=== PATIENT | female | born 1960 | race Caucasian/White ===

== ENCOUNTER → 2019-03-05 10:45 | Outpatient (CLI) | payer OTHER, SELFPAY ==
--- NOTE | 2019-03-05 10:45 | EMB_PTH ---
PATIENT: DAJUAN HICKMAN LOC: [facility] U#:[id number] AGE/SX: 64/F ROOM: RE03/05/[address]: Dr. Velasquez Justin MD : 1960 BED: DIS: SPEC #: [id number] RECD: 03/06/19 10:45 STATUS: JAMAAL DELIA #: [id number] JIM: 03/05/19 10:[address]: Velasquez Justin DEPT: SURGICAL PATHOLOGY RECD BY: Bhargav Dugan Tissues: Endometrium, NOS Procedures: Surgery Specimen Level IV HEADER OPERATION: Endometrial biopsy PRE-OP DIAGNOSIS: N85.8 TISSUE SUBMITTED: Endometrial biopsy MICROSCOPIC DIAGNOSIS Endometrium, biopsy: Scant strips of benign superficial endometrium and endocervix. See comment. AM:esperanza 03/07/19 COMMENT The specimen primarily contains blood clot. Clinical correlation is suggested. MICROSCOPIC DESCRIPTION Slides are reviewed. GROSS DESCRIPTION Received in fixative is one container labeled with the patient's name and designated endometrial biopsy. The specimen consists of multiple irregular and elongated fragments of reddish-dumont soft tissue that in aggregate measure 3 x 1.5 x 0.2 cm. The specimen is totally submitted in one cassette. / AM:esperanza 03/06/19 TC:5 CPT: 05126
== END ==
PROVIDERS: Referring Provider Obstetrics & Gynecology; Visit Provider Obstetrics & Gynecology
DX: N85.8 Other specified noninflammatory disorders of uterus (principal)
CPT/HCPCS: 88305

== ENCOUNTER 2019-04-01 12:19 | Inpatient (IN) | payer OTHER, SELFPAY ==
--- NOTE | 2019-03-25 16:06 | EKG12_ITS ---
Test Reason : PRE OP Blood Pressure : / mmHG Vent. Rate : 050 BPM Atrial Rate : 050 BPM P-R Int : 144 ms QRS Dur : 076 ms QT Int : 426 ms P-R-T Axes : 060 019 021 degrees QTc Int : 388 ms Sinus bradycardia with sinus arrhythmia Otherwise normal ECG Confirmed by JEAN PIERRE NAJERA, ERICA ([id number]), electronic news gathering editor MATEO SUTHERLAND ([id number]) on 03/26/2019 9:44:27 AM Referred By: Velasquez Justin Confirmed By:ERICA GREENFIELD MD
[2019-03-25 16:44] LABS: Hematocrit 44.9 % (37-47); Hemoglobin 14.2 g/dL (12.0-15.0); Mean Corp Hgb Conc 31.6 g/dL (32-36); Mean Corpuscular Hgb 29.8 pg (27.0-32.0); Mean Corpuscular Volume 94.1 fL (81-99); Mean Platelet Vol. 9.5 fl (6.2-12.0); Platelet Count 275 K/mm3 (150-450); RBC Distribution Width CV 13.2 % (11.6-14.6); RBC Distribution Width SD 45.8 fl (35.1-43.9); Red Blood Count 4.77 M/mm3 (4.2-5.4); White Blood Count 6.5 K/mm3 (4.4-11.0)
[2019-03-25 17:01] LABS: Prothrombin Time (Protime)PT. 12.5 SECONDS (11.7-14.9)
[2019-03-25 17:02] LABS: Partial Thromboplast Time 31.4 Seconds (24.1-36.2)
[2019-03-25 17:03] LABS: Creatinine, Serum 0.74 mg/dL (0.55-1.02); EST Glomerular Filtration Rate 85 mL/min (>60); Est Glom Filt Rate - Afr Amer 103 mL/min (>60)
--- NOTE | 2019-03-30 10:23 | PCM.HP.BLA ---
History and Physical Date of Admission: 04/01/19 Surgical History and Physical Vania Mederos, a 58 year old female 4 0 2 0 4, presents for USMAN/BSO and remove labial skin tag on April 01, 2019 at 04/01/19. -- Large Pelvic Mass -- Ada presents here today as referral from Susy BURNS for Enlarged Uterus found on recent CT Scan. She has noticed a low pressure periodically and a difference in her bowels. Denies bleeding or other concerns at this time. Enlarged Uterus which began Found on CT Scan. Ada claims it started suddenly. It occurs all the time. Characterizes the quality pressure. Severity is moderate and very concerned; Associated signs and symptoms are denies bleeding; some fullness in pelvis and constipation symptoms; also has vaginal polyp. CT scan shows 15-16 cm uterus with mass present. MEDICATIONS HISTORY: ALLERGIES: Peanut, Hives and/or rash, lettuce, Intolerance-diarrhea, Pineapple, Hives and/or rash, Bactrim and Lethargy Infections - Chicken pox Illnesses - no serious past illnesses Accidents - None Hospitalizations - Childbirth Review of Systems: GENERAL - Denies fever, or chills SKIN - Denies skin changes EYES - wears glasses EARS - Denies difficulty hearing NOSE - Denies nasal congestion or bleeding MOUTH - Denies sore throat or difficulty swallowing NECK - Denies pain or swelling RESPIRATORY - Denies shortness of breath or wheezing CARDIOVASCULAR - Denies palpitations or chest pain GASTROINTESTINAL - Denies nausea, vomiting, diarrhea, constipation GENITOURINARY - Denies dysuria, frequency of urination, incontinence of urine MUSCULOSKELETAL - Denies joint or muscle pain NEUROLOGICAL - Denies localized numbness or weakness PSYCHIATRIC - Denies depression or anxiety ENDOCRINE - Denies heat or cold intolerance, weight loss or gain HEMATO-IMMUNOLOGIC - Denies excessive bleeding with cuts SOCIAL HISTORY: Alcohol Use - None Smoking - Never Diet - No Peanuts/Peanut butter Lifestyle - moderate stress lifestyle and Exercise - active work Seat Belt Use - always Employer - [employer] Job Description - Dramatic Art Teacher Illicit Drug Use - None Sexual Activity - Spouse-Sig Other Name - Valerio Spouse-Sig Other Occupation - Self Employed Children Name(s) - 4 children Control - postmenopausal FAMILY HISTORY: MENSTRUAL HISTORY: LMP Known?- Postmenopausal PAST PREGNANCIES: Total Pregnancies - 6; Full Term Pregnancies - 4; Premature - 0; Abortions, Induced - 0; Abortions, Spontaneous - 2; Ectopics - 0; Multiple Births - 0; Living Children - 4 PHYSICAL EXAM BP- 118/68 Sitting, Right arm, regular cuff Temp- 98.5 Taken Orally Weight- 147.64115 lbs Height- 63 inch BMI:26.24 CONSTITUTIONAL - NAD, well nourished, and well developed SKIN - No rash, lesions, or ulcers HEENT - Normocephalic, PERRLA, EOMI NECK - No nodes, no nuchal rigidity and thyroid normal size and texture LYMPH NODES - Palpation of lymph nodes in neck and groins within normal limits LUNGS - CTA x2 without wheezes, crackles or rales CARDIAC - Regular rate and rhythm without rubs, murmurs, or gallops ABDOMEN - Without hepatosplenomegaly, distention, masses, rebound, or guarding; normal bowel sounds; no hernias EXTREMITIES - No edema or calf tenderness NEUROLOGICAL - Cranial nerves II-XII grossly intact PSYCHIATRIC - A and O to time, place, person, mood and affect External Genital Vagina - non-tender without lesions and 1 cm right labial cyst vs skin tag Urethra/Urethral Meatus - non-tender Bladder - non-tender Vagina - vaginal watts are pink and moist without loss of rugae and no evidence of atropy Cervix - without cervical motion tenderness and has normal size and features without evident lesions Uterus - 21-22 cm sized pelvic mass likely uterus; small ventral hernia (1 cm) Adnexa - non-diagnostic, compromised by pelvic mass ASSESSMENT/PLAN: 1. Intra-abdominal And Pelvic Swelling, Mass And Lump Likely large fibroid uterus causing bowel and bladder symptoms but no bleeding. EMBx and CA-125 results benign. U/S very suggestive of large fibroid uterus. Plan USMAN/BSO. Discussed RBAs including need for vertical skin incision and all questions answered. 2. Vulvar Cyst Plan removal at time of USMAN/BSO.
[2019-04-01] VITALS (12 sets, daily range): BP systolic 91–128; BP diastolic 56–68; PULSE 37–89; RESP 12–18; TEMP 36.2–36.9; O2SAT 94–98; BMI 26.2
[2019-04-01] MEDS: Lactated Ringers 1,000 ML 100 ML IV ×2 (12:49→14:45)
--- NOTE | 2019-04-01 13:50 | HYST_PTH ---
PATIENT: DAJUAN HICKMAN LOC: [facility] U#:[id number] AGE/SX: 58/F ROOM: SD322 RE04/01/[address]: Dr. Velasquez Justin MD : 1960 BED: 1 DIS: 04/02/2019 SPEC #: [id number] RECD: 04/01/19 15:54 STATUS: JAMAAL REAlan #: [id number] JIM: 04/01/19 13:[address]: Velasquez Justin DEPT: SURGICAL PATHOLOGY RECD BY: Bhargav Dugan ENTERED: 04/02/19 10:46 SP TYPE: HYSTERECT OTHR DR: GRANT Morgan Tissues: A - Uterus, NOS B - Labium, NOS Procedures: Special Stain Group II PAS Stain (control) Mucicarmine Stain (control) Surgery Specimen Level IV Surgery Specimen Level V HEADER OPERATION: Total abdominal hysterectomy, bilateral salpingo-oophorectomy PRE-OP DIAGNOSIS: Intra-abdominal and pelvic swelling, mass; vulvar cyst TISSUE SUBMITTED: A - Uterus, cervix, bilateral fallopian tubes and ovaries, B - Labial skin tag MICROSCOPIC DIAGNOSIS A. Uterus, hysterectomy: Cervix - nabothian cysts and minimal chronic inflammation. Endometrium - weakly proliferative to inactive endometrium. Myometrium - leiomyoma and focal adenomyosis. Right and left ovary - corpora albicantia and occasional benign inclusion cyst. Right and left fallopian tubes - no pathologic change. B. Labial skin tag, excision: Benign epithelial cyst. See comment. AM:esperanza 04/04/19 COMMENT Special stains (PAS and mucin) with matched controls support the above diagnosis and endocervical in origin. Clinical correlation is suggested. Case has been reviewed in consultation with Dr. Christianson who concurs with the above diagnosis. IDC:SJ MICROSCOPIC DESCRIPTION Slides are reviewed. GROSS DESCRIPTION A - Received in fixative is one container labeled with the patient's name and designated uterus. The specimen consists of a ball-shaped uterus with attached one fallopian tube and ovary, detached the other fallopian tube and ovary and detached cervical segment. The uterus with cervix weighs 1298 gm. The external surface of the uterus is inked. The endocervical canal measures 6.5 cm in length and is grossly unremarkable. The elongated endometrial cavity measures 6 x 2.5 cm. The endometrium is light dumont, velvety and glistening. The myometrium is distorted by a fleshy, rubbery, pink-dumont nodule measuring 14 cm in diameter. The cut surfaces of the mass are homogenous without areas of cyst formation, necrosis or hemorrhage. The myometrium without the mass measures 1.2 cm in greatest thickness. The right and left ovaries are similar in appearance having crinkled external surface and light dumont in color. The right ovary measures 3 x 2 x 1.5 cm. Serial sections do not reveal mass lesion. The right fallopian tube measures 5.5 cm in length and 0.6 cm in average diameter. No tubo-ovarian adhesions are identified. Serial sections of the left ovary likewise do not reveal mass lesions. The left fallopian tube measures 5?cm in length and 0.6 cm in average diameter. No tubo-ovarian adhesions are seen. Both fallopian tubes have normal fimbriated ends. Digital Proofing And Platemaker sections are submitted in 12 cassettes as follows: 1?- anterior cervix, 2 - posterior cervix, 3 & 4 - anterior uterine wall, 5 & 6 - posterior uterine wall, 7-10 - myometrial mass, 11 - right fallopian tube and ovary, 12 - left fallopian tube and ovary. B - Received is one container labeled with the patient's name and not further designated. The specimen consists of one irregular fragment of light dumont soft tissue that measures 1.5 x 1 x 0.4 cm. The specimen is bisected to reveal a cystic space containing light dumont fluid. The specimen is totally submitted in one cassette. / AM:esperanza 04/02/19 TC:1 CPT: 34996, 35662, 84818 x2
--- NOTE | 2019-04-01 15:12 | PCM.OPRPT ---
Report of Operation Date of Procedure: 04/01/19 Pre-Operative Diagnosis: Large Pelvic Mass and Fibroids, Right Vulvar Cyst Post-Operative Diagnosis: Large Pelvic Mass and Fibroids, Right Vulvar Cyst Surgery/Procedure Performed:: Total Abdominal Hysterectomy and Bilateral Salpingo-Oophorectomy, Excision of Right Vulvar Cyst Description of Surgical Findings:: 18 cm fibroid uterus with normal-appearing fallopian tubes and ovaries. 1.5 cm right vulvar cyst. medical imaging technician: Thu Briceño Type of Anesthesia:: General - Endotracheal Anesthesiologist: Valerio Ralph Specimen's removed: Uterus and bilateral fallopian tubes and ovaries, right vulvar cyst. Drains: Jimenez to straight drain Estimated Blood Loss (mL): 200 cc Fluids Replaced: Crystalloid Description of Procedure: Surgeon: Velasquez Justin MD, FACOG Indications: This is a 58-year-old patient who his been having problems with pelvic pressure and a recent CT scan and ultrasound showed a large pelvic mass which was probably a fibroid. She also has about a 1.5 to 2 cm right vulvar cyst which she would like removed. Given this the patient desires that we proceed with the above procedure. She has been counseled regarding the risk and indications of this procedure including the possibility of bleeding, infection, and injury to surrounding structures such as bowel bladder. All questions were answered. Procedure: Patient was taken to the operating room where after induction of general anesthesia she was prepped and draped in the usual sterile fashion. A Jimenez catheter was placed. The vulvar cyst was grasped with a pickup after Betadine sterilizing solution was applied and approximately 5 cc of half percent ropivacaine was injected in the right vulvar cyst base. Metzenbaum scissors was used to excise the cyst and it was sent in its entirety to pathology. 2 [id number] 2-0 chromic sutures were used to affect hemostasis and attention was turned toward the abdominal portion of the procedure. After being prepped and draped, the abdomen was entered through a Pfannenstiel incision and peritoneal cavity was entered bluntly. It was not possible to immediately place the Alysa retractor due to the large size of the uterus. Round ligaments were identified and ligated with 0 Vicryl suture. Progressive bites were taken on either side of the uterus and after approximately 2 bites we were able to develop a bladder flap. Before reaching the uterine arteries, the body of the uterus detached leaving the cervix in place. Progressive bites were then taken down on either side of the uterine cervix ligating each pedicle with 0 Vicryl suture. Final bites across the vaginal cuff incorporated the uterosacral ligaments into the vaginal cuff using 0 Vicryl suture and 2 [id number] sutures were placed across the vaginal cuff. Vaginal cuff and pelvic sidewall pedicles were oversewn where necessary to achieve hemostasis. The left ovary was then removed with infundibulopelvic ligament ligated x2. The right ovary had been removed with the uterine specimen but the pedicle was ligated x2 after removal of the uterus. Pelvis was copiously irrigated removing all clot and Erika was placed across the vaginal cuff to help with postoperative hemostasis. Bergheim retractor was removed and rectus abdominis muscles were reapproximated in the midline with interrupted 0 Vicryl suture. 0 PDS strata fix was used to close the fascia in a running fashion and subcutaneous tissue was copiously irrigated with saline solution before closing with 3-0 Vicryl suture. 3-0 Monocryl suture was then used in running fashion to reapproximate skin edges area and Steri-Strips, Telfa, and Mepilex were placed across the incision. Patient tolerated the procedure well was taken to recovery room in satisfactory condition; sponge instrument and needle counts were all reportedly correct. Estimated blood loss for the case was 200 cc. Cefotan g IV was given prior to beginning the operative procedure. There were no apparent complications of the surgery. Specimen to pathology was uterus and bilateral fallopian tubes and ovaries. Grafts/Implants Used: None - Complications None - Admit VTE Documentation VTE Present on Admission: Yes VTE Mechan Device Prophylaxis: SCD's VTE Pharm Prophylaxis ordered?: Yes
[2019-04-01] MEDS: Ropivacaine 0.5% 30 ML Vial (15:15)
--- NOTE | 2019-04-01 15:29 | DCINST_ITS ---
Discharge Diet: No Restrictions Discharge Activity: Return to Normal Activity - do what you feel comfortable, but do not over do it. You may climb stairs, just use caution and hold the railing., May not drive while taking narcotic pain medications., May Shower, May Take a Tub Bath May resume sexual activity in: 6 weeks - nothing in the vagina. Lifting Restrictions: 25 pounds for 6 weeks. Call your doctor if your incision/area has: Continuous Slow Oozing, Sudden Increased Bleeding, Increased Pain/ Swelling, Increased Redness, Foul Smelling Discharge Call your doctor if you observe: Fever of 101 or Higher, Inability to urinate, Inability to have a bowel movement, Using more than one pad per hour, - - Some vaginal bleeding may be noted for up to 4-8 weeks. Cleanse incision/area with: - - Let the soapy water run over your incision, rinse and pat dry. Additional Dressing/Incision Instructions:: The white strips (Steri Strips) on your incision will fall off on their own. Allergies/Adverse Reactions: Allergies sulfamethoxazole [From Bactrim] Adverse Reaction (Verified 04/01/19 12:36) exhaustion trimethoprim [From Bactrim] Adverse Reaction (Verified 04/01/19 12:36) exhaustion peanuts Allergy (Uncoded 04/01/19 12:36) Rash Medications to take at Discharge Antiarthritic Combination No.2 [Glucosamine-Chondroitin] 1,800 mg PO DAILY 03/22/19 Cholecalciferol (VIT D3) [Vitamin D] 2,000 unit PO DAILY 03/22/19 Turmeric Root Extract [Turmeric] 500 mg PO DAILY 03/22/19 Docusate Sodium [Colace] 100 mg PO BID PRN PRN #60 cap 04/01/19 Oxycodone [Oxyir] 5 mg PO Q6H PRN PRN 7 Days #20 tablet 04/01/19 The following prescriptions were given: Docusate Sodium [Colace] 100 mg PO BID PRN PRN #60 cap PRN Reason: Constipation Transmission Status: Pending to [facility]/pharmacy #[id number] Oxycodone [Oxyir] 5 mg PO Q6H PRN PRN 7 Days #20 tablet PRN Reason: Pain Score 6-10/10 Transmission Status: Received by [facility]/pharmacy #[id number] Primary Care Physician: Susy Hardy PA [Primary Care Provider] - Test Results: Test results from this visit will be discussed in further detail at your follow- up appointment, if applicable. Please Follow Up With: Velasquez Justin MD - [phone] When: in 2 weeks, please call to make an appointment.
--- NOTE | 2019-04-01 16:31 | EKG12_ITS ---
Test Reason : Blood Pressure : / mmHG Vent. Rate : 035 BPM Atrial Rate : 035 BPM P-R Int : 150 ms QRS Dur : 082 ms QT Int : 566 ms P-R-T Axes : 054 016 -01 degrees QTc Int : 432 ms Marked sinus bradycardia Abnormal ECG Confirmed by MATILDA NAJERA, ESDRAS ([id number]), loan expeditor MATEO SUTHERLAND ([id number]) on 04/04/2019 11:53:27 AM Referred By: Velasquez Justin Confirmed By:ESDRAS GREY MD
[2019-04-01] MEDS: Dextrose 5%-Lactated Ringers 1,000 ML 150 ML IV ×2 (17:29→23:54)
[2019-04-01] MEDS: Enoxaparin 30 MG/0.3 ML Syringe SC (20:55)
[2019-04-01] MEDS: Ketorolac 30 MG/ML Syringe IV (21:00)
[2019-04-02 02:48] VITALS: BP 107/53; PULSE 66; RESP 18; TEMP 36.7; O2SAT 94
[2019-04-02] MEDS: Ketorolac 30 MG/ML Syringe IV ×3 (05:03→15:34)
[2019-04-02 05:31] LABS: Hematocrit 38.7 % (37-47); Hemoglobin 12.5 g/dL (12.0-15.0); Mean Corp Hgb Conc 32.3 g/dL (32-36); Mean Corpuscular Volume 92.8 fL (81-99); Platelet Count 273 K/mm3 (150-450); RBC Distribution Width CV 13.2 % (11.6-14.6); RBC Distribution Width SD 45.3 fl (35.1-43.9); Red Blood Count 4.17 M/mm3 (4.2-5.4); White Blood Count 9.2 K/mm3 (4.4-11.0)
[2019-04-02 05:57] LABS: Creatinine, Serum 0.88 mg/dL (0.55-1.02); EST Glomerular Filtration Rate 71 mL/min (>60); Est Glom Filt Rate - Afr Amer 85 mL/min (>60); Estimated Creatinine Clearance 57.64 ml/min
--- NOTE | 2019-04-02 07:09 | PCM.PN.OB ---
Objective: Patient without complaints. Tolerating diet well. Denies flatus. Wants to go home later today if possible. Minimal vaginal bleeding reported. Pain well controlled - Physical Exam Vitals/I&O's: Vital Signs Temp Pulse Resp BP Pulse Ox 98.0 F 66 18 107/53 L 94 04/02/19 02:48 04/02/19 02:48 04/02/19 02:48 04/02/19 02:48 04/02/19 02:48 Oxygen Delivery Method Room Air Weight: 147 lb 11.355 oz Body Mass Index (BMI) 26.2 Intake and Output for Last 24 Hours 03/31/19 04/01/19 04/02/19 23:59 23:59 23:59 Intake Total 2487.5 / 2687.5 950 / 950 Output Total 545 / 795 950 / 950 Balance 1942.5 / 1892.5 0 / 0 Comment: Wound CDI. Hemoglobin and creatinine okay. Urine output okay. Laboratory Results 04/02/19 05:07: WBC 9.2, RBC 4.17 L, Hgb 12.5, Hct 38.7, MCV 92.8, MCH 30.0, MCHC 32.3, RDW Std Deviation 45.3 H, RDW Coeff of Jaziel 13.2, Plt Count 273, MPV 9.0 04/02/19 05:07: Creatinine 0.88, Estim Creat Clear Calc 57.64, Est GFR (MDRD) Af Amer 85, Est GFR (MDRD) Non-Af 71 Current Medications Acetaminophen (Tylenol) 1,000 mg PO Q8H PRN PRN PRN Reason: Pain Score 1-3/10 or Fever Docusate Sodium (Colace) 100 mg PO BID PRN PRN PRN Reason: CONSTIPATION Hydromorphone HCl (Dilaudid Inj) 0.5 - 1.5 mg IV Q3H PRN PRN PRN Reason: Pain Score 4-10/10 Ketorolac Tromethamine (Toradol) 30 mg IV Q6H JOSSELIN Stop: 04/06/19 22:01 Last Admin: 04/02/19 05:03 Dose: 30 mg Documented by: Ondansetron HCl (Zofran) 4 mg IV Q4H PRN PRN PRN Reason: NAUSEA Oxycodone HCl (Oxyir) 5 - 10 mg PO Q4H PRN PRN PRN Reason: Pain Score 4-10/10 [facility]) [facility] Last Admin: 04/01/19 20:55 Dose: 80 mg Documented by: Sodium Chloride () 10 - 40 ml IV UD PRN PRN Reason: SALINE FLUSH Medical Necessity - Tobacco Use Smoking Status: Never smoker Tobacco Use: Non-smoker Assessment/Plan Doing well status postoperative day #1 from total abdominal hysterectomy and bilateral salpingo-oophorectomy. Will release to home later today with routine instructions if tolerating diet and has flatus. Home-going instructions given.
[2019-04-02 07:10] VITALS: O2SAT 95
--- NOTE | 2019-04-02 07:16 | NURSING ---
ok to d/c jameson per Dr. Justin.
[2019-04-02] MEDS: 0.9% Saline Lock 10 ML Syringe IV (09:53)
[2019-04-02] MEDS: Docusate Sodium 100 MG Capsule PO (09:59)
[2019-04-02 10:00] VITALS: BP 117/59; PULSE 77; RESP 18; TEMP 36.9; O2SAT 95
--- NOTE | 2019-04-02 10:10 | CASEMGMT ---
RN BERE Face to Face with patient for initial transition planning/care coordination assessment. RN CM introduced self and role at [facility]. Patient lying in bed, alert and oriented. Patient willing to participate in assessment and is able to answer all questions appropriately. Care providers, pharmacy, and demographics verified. Patient wishes to discharge home, denies need for home health at this time. Patient states she has no further needs or concerns at this time. CM to follow for discharge planning needs that may arise. PCP: Antony BURNS Specialists: None Preferred Pharmacy: [facility] Insurance: [employer] Prescription Benefit: yes Living Will/HPOA: none LNOK: Living Arrangements: Patient lives with in 2 story home with bed and bath on first floor. Patient independent at home. Transportation: DME/HHC: Patient has cane, walker, raised toilet Disposition Plan: Patient to discharge home with family support and follow-up plans in place. Gabbi MARCIALN, RN, CM
[2019-04-02 16:15] VITALS: BP 112/58; PULSE 71; RESP 18; TEMP 36.6; O2SAT 95
[2019-04-02] MEDS: Acetaminophen 500 MG Tablet 1000 MG PO (17:41)
[2019-04-02 18:48] VITALS: BP 127/75; PULSE 74; RESP 18; TEMP 36.7; O2SAT 100
== END 2019-04-02 19:05 | disposition home or self-care (01) | DRG 743 ==
LOC: ACINP 12:39 → MS3 17:11
PROVIDERS: Admitting Provider Obstetrics & Gynecology; Family Provider Physician Assistant; PCP Physician Assistant; Referring Provider Obstetrics & Gynecology; Visit Provider Obstetrics & Gynecology
PROC: 0UT90ZZ Resection of Uterus, Open Approach (ICD-10-PCS; CPT 58150; principal; 2019-04-01 13:30)
DX: D25.9 Leiomyoma of uterus, unspecified (principal); N90.7 Vulvar cyst
CPT/HCPCS: 36415; 82565; 85027; 85610; 85730; 86850; 86900; 86901; 88305; 88307; 88313; 93005; 99251; J7120; A4216; G0463; J2405